=== PATIENT | female | born 1980 | race Caucasian/White ===

== ENCOUNTER 2020-09-25 12:31 | Day surgery (SDC) | payer BC, SELFPAY ==
[2020-09-19 14:32] VITALS: BMI 20.9
[2020-09-25] VITALS (7 sets, daily range): BP systolic 109–125; BP diastolic 60–83; PULSE 77–118; RESP 16–18; TEMP 36.1–36.5; O2SAT 96–100
[2020-09-25 13:25] LABS: HCG Qualitative, Serum Negative (Negative)
[2020-09-25 13:54] LABS: Coronavirus 19 IgG Antibody Negative (Negative); Coronavirus 19 IgM Antibody Negative (Negative)
--- NOTE | 2020-09-25 14:42 | HMH.ANESCL ---
[facility] Anesthesia Checklist - Patient Identification Patient Identification: Arm Band, Verbal (Name & ) - Structural Data Admitted From: Home Planned Operative Procedure/s: ercp Consent for Planned Operative Procedure(s) Verified: Yes - NPO Status Verified Time NPO: 00:00 - Additional verifications Patient : No Anesthesia Reactions: No Hx Blood Transfusions: No Blood Transfusion Reaction: No Cephalosporin Allergy: No Previous Colonoscopy: No - Cardiovascular Assessment Heart Sounds: S1 & S2 Pulse Strength: Baseline Pulse Rhythm: Regular Peripheral Edema: No - Airway Assessment C-Spine Mobility Assessed: Yes TMJ Mobility Assessed: Yes Dentition: Good Dentition - Neurological Assessment Level of Consciousness: Awake, Alert, Appropriate Hx Seizures: No Numbness or tingling in extremities: No - Anesthesia Plan Anesthesia Risk discussed: Yes Anesthesia Plan: Verified ASA Class: II Anesthesia Type: MAC [facility] History I have reviewed the patient's past medical history: Yes Medical History: Denies:: Cancer, Diabetes Mellitus Type 1, Diabetes Mellitus Type 2, Internal Pacemaker, MRSA, Seizures *Have you ever received a pneumonia vaccine?: No *Have you received a flu vaccine this season?: No Anesthesia experience/problems:: none Other Surgeries: No: Pacemaker Amputation: No Fractures: No - *Social History Alcohol Intake: never Substance Use Type: other *Occupational Status:: employed Housing: house Household Members: spouse *Travel in the last 8 weeks: None Family Hx:: Other
--- NOTE | 2020-09-25 15:00 | FL_ITS ---
PROCEDURE: FL ERCP CLINICAL INDICATION: abdominal pain Autoimmune hepatitis/autoimmune cholangitis COMPARISON: No exams were available for comparison FINDINGS: Fluoroscopy time: 3 minutes and 34 seconds. Select images are submitted from the ERCP. The pancreatic duct is not appear dilated. There is some irregularity of the accessory pancreatic duct Select images from the common bile duct injection show very small common bile duct with some irregularities distally. The cystic duct is normal in caliber. IMPRESSION: 1. Very small common bile duct with some irregularity distally. These findings may represent sclerosing cholangitis. 2. Minimal irregularity of the accessory pancreatic duct which could be seen with chronic pancreatitis Dictated by: Jak Fam MD 10/02/2020 08:51 Jak Fam MD in [place] 10/02/2020 08:51
--- NOTE | 2020-09-25 15:52 | HMH.PROC ---
[facility] Procedure Note Procedure Note:: ERCP procedure Report: Endoscopic retrograde cholangiopancreatography with biliary sphincterotomy Endoscopist: Dick Pollack II, MD Referring Physician: None Date of Procedure: September 25, 2020 Equipment: Olympus 180 side viewing endoscope duodenoscope Sedation: MAC sedation Indication: Mrs. Tom is a 40-year-old female with autoimmune hepatitis/autoimmune cholangitis. She is doing well with CellCept and prednisone. She had negative IgG4 subclasses and negative p-ANCA and negative ASCA IgG and IgA antibodies in November of this year. The patient does have IBS diarrhea. She did have a colonoscopy with id in April 2019. This was normal except for biopsies showing focal minimal acute inflammation (nonspecific). The patient has had chronic ongoing diarrhea for the last 2 years. She has been on antispasmodics, bulk fiber, colestipol, Viberzi, Creon etc. with minimal or no success. The patient also has had prior MRI of the abdomen in July 2017 that showed some mild peripheral biliary dilation in the left hepatic lobe. The patient did have an ultrasound of the abdomen on August 08, 2020. She has had some right upper quadrant abdominal discomfort. There were no gallstones and the gallbladder was normal in size with no gallbladder wall thickening and the biliary system was normal in size. The patient did have a subsequent HIDA scan on August 21, 2020 showing mild delayed visualization of the small bowel and these findings were possibly consistent with biliary dyskinesia. Procedure: Prior to the procedure, a history and physical exam was performed, and patient's medications and allergies were reviewed. The risks, benefits and alternatives of the sedation and procedure were discussed with the patient. All questions were answered and informed consent was obtained. The patient was brought to the fluoroscopic radiology room. Patient identification and proposed procedure were verified by the physician and the nurse. The patient was placed in a swimmer's position between left lateral decubitus and prone position and the scope was passed under direct vision. Throughout the procedure, the patient's blood pressure, pulse, and oxygen saturations were monitored continuously. The ERCP was accomplished without difficulty. The patient tolerated the procedure well. Findings: The side-viewing duodenal scope was passed directly into the upper esophagus and advanced to the third portion of the duodenum. The esophagus had nonerosive GERD changes. The stomach was normal in appearance. There was no evidence of portal hypertension. The ampulla was visualized it was behind an overlying fold. The pancreatic duct was initially cannulated. The pancreatogram showed a normal 2 mm pancreatic duct with normal filling of the head body and tail of the gland. There were a couple of ductular ectasias but there were no strictures or other abnormality. Next, the common bile duct was cannulated and the cholangiogram showed a very small 2 to 3 mm common bile duct with some stricturing of the biliary system in the common bile duct and some within the intrahepatic biliary system. There was a smaller caliber CBD thus making subtle stricturing difficult. There was full filling of the larger cystic duct and gallbladder. There was some attenuation of the intrahepatic biliary system. To improve biliary drainage, biliary sphincterotomy was performed. Impression: 1. 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 Presently, her liver chemistries are normal. She has had some right upper quadrant discomfort. She presently is on 7.5 mg of prednisone daily. She also has weaned mycophenolate. We will discu
== END 2020-09-25 16:43 ==
PROVIDERS: Visit Provider Internal Medicine Gastroenterology
PROC: (CPT 43262; principal; 2020-09-25 14:30)
DX: K83.09 Other cholangitis (principal); K75.4 Autoimmune hepatitis; Z79.899 Other long term (current) drug therapy; K58.0 Irritable bowel syndrome with diarrhea
CPT/HCPCS: 43262; 36415; 74330; 84703; 86328; Q9967

== ENCOUNTER 2024-12-07 16:06 | Outpatient (CLI) | payer BC, SELFPAY ==
[2024-12-07 16:28] LABS: Basophils % 0.3 % (0.1-2.0); Eosinophils # 0.1 K/mm3 (0.0-0.4); Eosinophils % 0.4 % (0.1-12.0); Hematocrit 42.6 % (37.0-47.0); Hemoglobin 14.2 g/dL (12.2-16.2); Lymphocytes # 3.6 K/mm3 (0.7-4.5); Lymphocytes % 29.6 % (10-50); Mean Corpuscular HGB Conc 33.3 g/dL (31.8-35.4); Mean Corpuscular Hemoglobin 31.6 pg (27.0-31.2); Mean Corpuscular Volume 94.9 fl (81-99); Mean Platelet Volume 10.1 fl (7.4-10.4); Monocytes # 1.3 K/mm3 (0.1-1.0); Monocytes % 10.5 % (1.7-9.3); Neutrophils # 7.2 K/mm3 (1.8-7.8); Platelet Count 276 K/mm3 (142-424); Red Blood Count 4.49 M/mm3 (4.20-5.40); Red Cell Distribution Width 12.1 % (11.5-17.5); White Blood Count 12.1 K/mm3 (4.8-10.8)
[2024-12-07 16:54] LABS: Alanine Aminotransferase 26 U/L (12-78); Albumin Level 4.5 g/dl (3.5-5.0); Albumin/Globulin Ratio 2.3 (1.1-1.8); Alkaline Phosphatase 56 U/L (38-126); Anion Gap 13.3 mEq/L (5-15); Aspartate Amino Transferase 29 U/L (14-36); Bilirubin,Total 0.7 mg/dl (0.2-1.3); Blood Urea Nitrogen 13 mg/dl (7-17); Calcium 9.4 mg/dl (8.4-10.2); Carbon Dioxide 28 mmol/L (22.0-30.0); Chloride 99 mmol/L (98-107); Estimated Glomerular Filt Rate 91 ml/min (>60); GFR (African American) 110 ML/MIN (>60); Glucose 82 mg/dl (74-100); Potassium 3.3 mmoL/L (3.5-5.1); Sodium 137 mmol/L (136-145); Total Protein,Serum 6.5 g/dl (6.3-8.2)
[2024-12-08 23:09] LABS: ALT (SGPT) P5P 21 IU/L (0-40); AST (SGOT) P5P 21 IU/L (0-40); Alpha 2-Macroglobulins, Qn 202 mg/dL (110-276); Apolipoprotein A-1 166 mg/dL (116-209); Bilirubin, Total 0.6 mg/dL (0.0-1.2); Cholesterol, Total 181 mg/dL (100-199); Fibrosis Score 0.17 (0.00-0.21); GGT 36 IU/L (0-60); Glucose 83 mg/dL (70-99); Haptoglobin 108 mg/dL (42-296); Steatosis Score 0.33 (0.00-0.40); Triglycerides 133 mg/dL (0-149)
== END 2024-12-07 23:59 | disposition home or self-care (01) ==
LOC: LAB 16:08
PROVIDERS: PCP Internal Medicine; Visit Provider Internal Medicine Gastroenterology
DX: K75.4 Autoimmune hepatitis (principal); K74.69 Other cirrhosis of liver; B19.20 Unspecified viral hepatitis C without hepatic coma
CPT/HCPCS: 36415; 80053; 85025